=== PATIENT | male | born 1955 | race Caucasian/White ===

== ENCOUNTER 2019-04-13 18:06 | Inpatient (IN) | payer OTHER ==
[~2019-04-13] VITALS: Ht 170.2 cm; Wt 129.5 kg
[~2019-04-13 18:06] MED LIST: ASPI-831 PO; ATOR40TA68 PO; CEPH500C PO; CLON-379 PO; CLOP75TA28 PO; METO-429 PO
--- NOTE | 2019-04-13 18:17 | ERD ---
ER Documentation Chief Complaint Chief Complaint HPI This is a 63-year-old male with a past medical history of hypertension who was b rought into the emergency department by EMS from his home. EMS indicated they had been called to the patient earlier today as he was complaining of generalized weakness. The patient was refusing to go to the hospital at that time. EMS indicated that time the patient did not complain of any weakness of his upper or lower extremities. That was 5 hours prior to arrival. The patient recalled 911 as he stated over the past 5 hours he has developed weakness of his left upper extremity, right lower extremity and had difficulty speaking. He denied any numbness or tingling of his upper extremities or lower extremities. He denies a headache. The patient states that he does not take any anticoa gulants. He denies any recent seizure activity. He denies any hemoptysis hematemesis or melanotic stools. He has no chest pain or pressure. He states he is never had any similar symptoms in the past. ROS All systems reviewed and are negative except as per history of present illness. Allergies Allergies: Coded Allergies: No Known Allergy (Unverified , 04/13/19) Physical Exam Vitals Vital Signs Date Temp Pulse Resp B/P (MAP) Pulse Ox O2 O2 Flow FiO2 Time Delivery Rate 04/13/19 98.1 77 20 102/69 99 18:30 (80) Physical Exam Constitutional:Well-developed. Disheveled HEENT:Normocephalic. Atraumatic.Pupils were equal round reactive to light. Moist mucous membranes.No tonsillar exudates. Neck: No nuchal rigidity. No lymphadenopathy. No posterior cervical spine tende rness or step-offs. Respiratory: Not using accessory muscles of respiration.Lungs were clear to ausc ultation bilaterally. No rhonchi. No rales. No wheezing. Cardiovascular: Regular rate regular rhythm.No murmurs. No rubs were appreciated.S1, S2 normal. Distal pulses are palpable 2+ bilaterally. GI: Abdomen was soft. Nontender. Non Distended. No pulsatile abdominal masses or bruits. No rebound. No guarding. Bowel sounds were present and normal. Muscle skeletal: No muscle atrophy. No asymmetrical calf tenderness or swelling Skin: No petechia, no purpura. No lesions on the palms or the soles of the feet. No maculopapular rash. NEURO: Patient was alert, awake, orientated x3.No facial droop. Speech was slurred. Flaccid paralysis of the left upper extremity. Patient was able to lift the left lower extremity against gravity for roughly 2 seconds. Gait not observed. Sensation diminished on the left side of the face compared to the right with sharp and dull. Sensation also diminished on the left upper extremity to sharp and dull compared to the right. Result Diagram: 04/13/19181704/13/198 Results 24 hrs Laboratory Tests Test 04/13/19 18:18 04/13/19 18:34 White Blood Count 7.5 10^3/ul Red Blood Count 4.52 10^6/ul Hemoglobin 14.4 g/dl Hematocrit 43.2 % Mean Corpuscular Volume 95.6 fl Mean Corpuscular Hemoglobin 31.9 pg Mean Corpuscular Hemoglobin Concent 33.3 g/dl Red Cell Distribution Width 13.2 % Platelet Count 153 10^3/UL Mean Platelet Volume 10.0 fl Immature Granulocytes % 0.400 % Neutrophils % 70.3 % Lymphocytes % 18.6 % Monocytes % 7.9 % Eosinophils % 2.1 % Basophils % 0.7 % Nucleated Red Blood Cells % 0.0 /100WBC Immature Granulocytes # 0.030 10^3/ul Neutrophils # 5.2 10^3/ul Lymphocytes # 1.4 10^3/ul Monocytes # 0.6 10^3/ul Eosinophils # 0.2 10^3/ul Basophils # 0.1 10^3/ul Nucleated Red Blood Cells # 0.0 10^3/ul Prothrombin Time 13.0 Sec Prothrombin Time Ratio 1.0 INR International Normalized Ratio 0.97 Activated Partial Thromboplast Time 29.6 Sec Sodium Level 141 mmol/L Potassium Level 4.0 mmol/L Chloride Level 108 mmol/L Carbon Dioxide Level 23 mmol/L Anion Gap 10 Blood Urea Nitrogen 13 mg/dl Creatinine 1.27 mg/dl Est Glomerular Filtrat Rate mL/min 57 mL/min Glucose Level 101 mg/dl Hemoglobin A1c 5.3 % Calcium Level 9.4 mg/dl Total Bilirubin 0.6 mg/dl Direct Bilirubin 0.00 mg/dl Indirect Bilirubin 0.6 mg/dl Aspartate Amino Transf (AST/SGOT) 23 IU/L Alanine Aminotransferase (ALT/SGPT) 29 IU/L Alkaline Phosphatase 68 IU/L Creatine Kinase 85 IU/L Creatine Kinase Index 1.0 Creatinine Kinase MB (Mass) 0.85 ng/ml Troponin I < 0.012 ng/ml Total Protein 7.1 g/dl Albumin 4.4 g/dl Globulin 2.70 g/dl Albumin/Globulin Ratio 1.62 Triglycerides Level 119 mg/dl Cholesterol Level 138 mg/dl LDL Cholesterol, Calculated 82 mg/dl HDL Cholesterol 32 mg/dl Cholesterol/HDL Ratio 4.3 RATIO Ethyl Alcohol Level < 10.0 mg/dl Bedside Glucose 93 mg/dL Current Medications Medications Dose Sig/Gabrielle Start Time Status Last (Trade) Ordered Route PRN Stop Time Admin Dose Reason Admin Ondansetron 4 mg ER BRIDGE 04/13/19 HCl (Zofran PRN IV 20:30 04/14/19 Inj) NAUSEA/VOMITI 20:29 NG 650 mg ER BRIDGE 04/13/19 Acetaminophen PRN PO 20:30 04/14/19 (Tylenol .MILD PAIN 20:29 Tab) 1-3 OR TEMP Procedures/MDM This is a 63-year-old male who presented to the emergency department by EMS and code stroke was immediately called after my initial evaluation. The patient was not a TPA candidate given that his symptoms started 5 hours prior to arrival with the last known normal time. However the patient immediately was taken to the CT scan to undergo a CT of his head as well as CTA head and neck. I spoke with the interventional neurologist Dr. Frye at 6:15 PM. He was also in a grants from our conversation that the patient was not a TPA candidate. CT scan showed no intracerebral hemorrhage mass-effect dementia. The patient was given aspirin. He will be admitted to the hospitalist for observation for further evaluation. 12 Lead EKG tracing ordered and reviewed by myself showed: Normal sinus rhythm of 67 bpm and no arrhythmia. AR interval normal. QRS duration normal. No ST segment elevation No ST segment depression. No changes consistent with acute ischemia. Critical Care: Time: 55 minutes Treatments/Evaluations: Close monitoring and treatment of unstable vital signs, cardiorespiratory, and neurologic status, while maintaining tight balance of fluid, respiratory, and cardiac interventions. Time does not include performing any of the above billable procedures. Departure Diagnosis: Primary Impression: CVA (cerebral vascular accident) CVA mechanism: unspecified Qualified Codes: I63.9 - Cerebral infarction, unspecified Condition: Serious JUJU CERDA MD Apr 13, 2019 18:17
--- NOTE | 2019-04-13 18:52 | STROKE ---
Date/Time of Note Date/Time of Note DATE: 04/13/19 TIME: 18:51 Patient Information General Patient location: emergency Arrival Date Age 63 Gender male Weight 130.5 kg POC Glucose Glucose Result Bedside Glucose - 72 Hours Test 04/13/19 18:34 Bedside Glucose 93 mg/dL (70-220) Vital Signs Vital Signs Vital Signs Date Temp Pulse Resp B/P (MAP) Pulse Ox O2 O2 Flow FiO2 Time Delivery Rate 04/13/19 98.1 77 20 102/69 99 18:30 (80) Labs Coagulation Labs: Coagulation Test 04/13/19 18:18 Activated Partial Thromboplast Time 29.6 Sec (23.0-35.0) History & Physical History of Present Illness 63 M PMH HTN LKW 1200 PST with generalized weakness then later left hemiparesis and dysarthria NIH Stroke Scale NIH Stroke Scale [id number] Total Score: [id number] Date/Time Recorded DATE: 04/13/19 TIME: 18:30 Submitted By Omero May t-PA Imaging Review Date/Time Imaging Reviewed DATE: 04/13/19 TIME: 18:51 t-PA Administration Recommendation: No Weight 130.5 kg Recommedation submitted by Omero May Reason t-PA not Recommended Not in time window Recommendations Recommendation 63 M with left hemiparesis concerning for stroke. Not in tPA window. Examination consistent with likely small-vessel etiology of stroke but CTA Head/Neck to rule-out LVO is pending. - No [employer] imaging uploaded yet. Local team to contact Radiology on-call. If no LVO on CTA then local admission for stroke work-up is the plan - Admission for initial stroke studies: MRI Brain, TTE with bubble, blood cultures, telemetry, EKG, LDL, A1c, SP, PT, OT. Further testing per these initial results/evaluations. - Perform bedside swallow testing in ED and load with ASA 325 mg PO and Plavix 600 mg PO if passes and not already on these agents at home. Would continue ASA at 81 mg PO QD and Plavix at 75 mg PO QD starting tomorrow. Duration of dual- antiplatelet therapy per local Neurology team, but maximum benefit is seen in first 7 days per POINT trial in patients without intracranial atherosclerotic disease - q 1 hr neuro checks over next 24 hrs - Strict euvolemia, normonatremia, normothermia, normoglycemia - Permissive SBP to 185 for first 24 hours during stroke work-up - Please consult local Neurologist to guide further recs OMERO MAY MD Apr 13, 2019 18:52
[2019-04-13] MEDS ORDERED: ASPIRIN (EC) 81 MG TAB PO ONE (20:30)
[2019-04-13] MEDS ORDERED: ONDANSETRON 4 MG INJ IV PRN (20:30)
[2019-04-13] MEDS ORDERED: ACETAMINOPHEN 325 MG TAB PO PRN (20:30)
[2019-04-13 22:00] VITALS: BP 148/78; PULSE 69; RESP 20; Ht 170.2 cm; Wt 129.5 kg
[2019-04-13] MEDS ORDERED: SOD CHLORIDE 0.9% 100 ML ONE (22:56)
[2019-04-13] MEDS ORDERED: IOHEXOL 100 ML ONE (22:56)
[2019-04-14] MEDS ORDERED: ACETAMINOPHEN 325 MG TAB PO PRN (01:00)
[2019-04-14] MEDS ORDERED: ALBUTEROL/IPRATROPIUM (NEB) 3 ML AMP HHN PRN (01:00)
[2019-04-14] MEDS ORDERED: NACL 0.9% 3 ML SYG IV SCH (01:00)
[2019-04-14] MEDS ORDERED: ONDANSETRON 4 MG INJ IV PRN (01:00)
[2019-04-14 01:39] VITALS: BP 181/97; PULSE 63; RESP 20
[2019-04-14] MEDS ORDERED: PANTOPRAZOLE 40 MG INJ IV ONE (02:00)
[2019-04-14] MEDS ORDERED: CLOPIDOGREL 75 MG TAB PO ONE (03:30)
--- NOTE | 2019-04-14 03:39 | HP ---
Date/Time of Note Date/Time of Note DATE: 04/14/19 TIME: 03:29 Assessment/Plan VTE Prophylaxis Risk score (from Ns)>0 risk: 3 SCD applied (from Ns): Yes Pharmacological prophylaxis: heparin Lines/Catheters IV C[facility] Type [facility] Saline Lock Urinary Cath still in place: No Assessment/Plan Assessment/Plan 1. Acute CVA -Patient presented with left-sided weakness and slurred speech. Slurred speech is still present even though patient was sleepy of the time of my examination -Head CT and CT angiogram without acute findings -Out of window for TPA -He was given low-dose aspirin in the ER -will give the Plavix 600 mg per telemetry neurology recommendation, then will add Plavix 75 mg daily to low-dose aspirin -Add statin -Obtain MRI of the brain and a 2D echo -Neurology consult -PT and speech/swallow eval -Frequent neurochecks 2. History of CAD with stent -Aspirin and statin 3. Presumed PRASHANT: hydration for now 4. History of hypertension: BP with-in acceptable range 5. Obesity with a BMI of 45: Currently patient sleepy, but weight reduction will be advised when patient is more awake Result Diagram: 04/13/19 1818 04/13/19 1818 Results 24hrs Laboratory Tests Test 04/13/19 18:18 04/13/19 18:34 04/13/19 21:31 White Blood Count 7.5 Red Blood Count 4.52 L Hemoglobin 14.4 Hematocrit 43.2 Mean Corpuscular Volume 95.6 Mean Corpuscular Hemoglobin 31.9 Mean Corpuscular Hemoglobin Concent 33.3 Red Cell Distribution Width 13.2 Platelet Count 153 Mean Platelet Volume 10.0 Immature Granulocytes % 0.400 Neutrophils % 70.3 Lymphocytes % 18.6 Monocytes % 7.9 Eosinophils % 2.1 Basophils % 0.7 Nucleated Red Blood Cells % 0.0 Immature Granulocytes # 0.030 Neutrophils # 5.2 Lymphocytes # 1.4 Monocytes # 0.6 Eosinophils # 0.2 Basophils # 0.1 Nucleated Red Blood Cells # 0.0 Prothrombin Time 13.0 Prothrombin Time Ratio 1.0 INR International Normalized Ratio 0.97 Activated Partial Thromboplast Time 29.6 Sodium Level 141 Potassium Level 4.0 Chloride Level 108 Carbon Dioxide Level 23 Anion Gap 10 Blood Urea Nitrogen 13 Creatinine 1.27 H Est Glomerular Filtrat Rate mL/min 57 L Glucose Level 101 Hemoglobin A1c 5.3 Calcium Level 9.4 Total Bilirubin 0.6 Direct Bilirubin 0.00 Indirect Bilirubin 0.6 Aspartate Amino Transf (AST/SGOT) 23 Alanine Aminotransferase (ALT/SGPT) 29 Alkaline Phosphatase 68 Creatine Kinase 85 Creatine Kinase Index 1.0 Creatinine Kinase MB (Mass) 0.85 Troponin I < 0.012 Total Protein 7.1 Albumin 4.4 Globulin 2.70 Albumin/Globulin Ratio 1.62 Triglycerides Level 119 Cholesterol Level 138 LDL Cholesterol, Calculated 82 HDL Cholesterol 32 Cholesterol/HDL Ratio 4.3 Ethyl Alcohol Level < 10.0 H Bedside Glucose 93 Urine Color YELLOW Urine Clarity CLEAR Urine pH 6.0 Urine Specific [place] 1.008 Urine Ketones NEGATIVE Urine Nitrite NEGATIVE Urine Bilirubin NEGATIVE Urine Urobilinogen NEGATIVE Urine Leukocyte Esterase NEGATIVE Urine Hemoglobin NEGATIVE Urine Glucose NEGATIVE Urine Total Protein NEGATIVE Urine Opiates Screen Negative Urine Barbiturates Negative Urine Amphetamines Screen Negative Urine Benzodiazepines Screen Negative Urine Cocaine Screen Negative Urine Cannabinoids Positive HPI/ROS Admit Date/Time Admit Date/Time Apr 13, 2019 at 20:11 Hx of Present Illness Patient is a 63-year-old male with a history of hypertension and CAD with stent who presented to ER complaining of left-sided weakness and slurred speech. Patient is currently sleepy and requires constant stimulation to keep him awake. As such information from the patient is limited. He said the reason why he came to the hospital is because of stroke. On further questioning, patient made he has been having slurred speech and unable to walk on his left leg for a day. He also complains of left upper extremity weakness. Denied a history of previous stroke. Patient appears disheveled with poor dentition and onychomycosis. He said he lives alone in an apartment not far from this hospital. When he presents the ER, vitals were stable. Head CT without acute findings. He was evaluated by tele-neurologist and TPA was given. At the time of tele evaluation, results of CT and CT angiogram were still pending. PMH/Family/Social Past Medical History Medical History: other (See HPI) Medications Current Medications Ondansetron HCl (Zofran Inj) 4 mg ER BRIDGE PRN IV NAUSEA/VOMITING; Start 04/13/19 at 20:30; Stop 04/14/19 at 20:29 Acetaminophen (Tylenol Tab) 650 mg ER BRIDGE PRN PO .MILD PAIN 1-3 OR TEMP; Start 04/13/19 at 20:30; Stop 04/14/19 at 20:29 IV Flush (NS 3 ml) 3 ml PER PROTOCOL IV ; Start 04/14/19 at 01:00 Ondansetron HCl (Zofran Inj) 4 mg Q6H PRN IV NAUSEA/VOMITING; Start 04/14/19 at 01:00 Aspirin (Aspirin) 81 mg DAILY PO ; Start 04/14/19 at 09:00 Acetaminophen (Tylenol Tab) 650 mg Q6H PRN PO .PAIN 1-3 OR TEMP; Start 04/14/19 at 01:00 Heparin Sodium (Porcine) (Heparin (5000 Units/1ml)) 5,000 unit Q12 SC ; Start 04/14/19 at 09:00 Albuterol/ Ipratropium (Duoneb) 3 ml Q2H RESP THERAPY PRN HHN SHORTNESS OF BREATH; Start 04/14/19 at 01:00 Atorvastatin Calcium (Lipitor) 20 mg HS PO ; Start 04/14/19 at 21:00 Coded Allergies: No Known Allergy (Unverified , 04/13/19) Past Surgical History Past Surgical Hx: other (See HPI) Family History Significant Family History: no pertinent family hx Social History Alcohol Use: other (Unknown) Smoking Status: Unknown if ever smoked Drug Use: other (Unknown) Exam/Review of Systems Vital Signs Vitals Vital Signs Date Temp Pulse Resp B/P (MAP) Pulse Ox O2 O2 Flow FiO2 Time Delivery Rate 04/14/19 98.2 63 20 181/97 98 Room Air 01:39 (125) 04/14/19 3.0 00:00 Intake and Output 04/13/19 04/13/19 04/14/19 1515:00 23:00 07:00 OutputOutput Total 300 ml BalanceBalance -300 ml Exam Constitutional: other (Sleepy, but arousable) Head: normocephalic, atraumatic Eyes: PERRL ENMT: other (Poor dentition) Respiratory: clear to auscultation, normal air movement Cardiovascular: regular rate and rhythm, nl pulses Gastrointestinal: soft Extremities: normal pulses, other (Onychomycosis) Neurological: other (Slurred speech noted. Unable to fully assess neurological exam because patient is a sleepy and requires constant stimulation) KEV VAZQUEZ MD Apr 14, 2019 03:38
[2019-04-14 04:40] VITALS: BP 168/78; RESP 18
[2019-04-14 07:41] VITALS: BP 148/77; PULSE 61; RESP 18
[2019-04-14] MEDS: ASPIRIN 81 MG TAB PO SCH (09:14)
[2019-04-14] MEDS: HEPARIN 5,000 UNIT/1 ML VIAL SC SCH ×2 (09:38→20:32)
[2019-04-14] MEDS ORDERED: POTASSIUM CHLORIDE (SR) 20 MEQ TAB PO STA ×2 (10:56→13:48)
--- NOTE | 2019-04-14 11:03 | PN ---
Date/Time of Note Date/Time of Note DATE: 04/14/19 TIME: 11:03 Assessment/Plan VTE Prophylaxis Risk score (from Ns)>0 risk: 5 SCD applied (from Ns): Yes Pharmacological prophylaxis: heparin Lines/Catheters IV Catheter Type (from [facility]): Peripheral IV Urinary Cath still in place: No Assessment/Plan Hospital Course SUBJECTIVE: Patient continued to have speech difficulties. Able to move all 4 extremities all the left upper extremity slightly weaker but improved from prior. OBJECTIVE: Vital signs-see below PHYSICAL EXAM: Constitutional: Obese male,not in acute distress. HEENT: Head atraumatic and normocephalic. Eyes: Extraocular muscles intact. Anicteric sclerae. Pupils equal bilaterally, reactive to light. NECK: Supple without lymph node. CHEST: Clear and good breath sounds equally. No wheezing. No rhonchi. HEART: S1, S2. Regular rate and rhythm. ABDOMEN: Soft/non tender with no rebound tenderness. Bowel sounds were present. EXTREMITIES: No cyanosis, clubbing or edema. NEUROLOGIC: Alert and oriented, answers questions appropriately although drifts off. Slurred speech. Motor strength 4 out of 5 on LUE/LLE. 5/5 RLE,RUE.. No sensory deficit. PSYCHOSOCIAL: No signs of depression. INTEGUMENTARY: No open wounds. ASSESSMENT AND PLAN:63 yo M w/HTN/DLP admitted with sudden onset of left-sided weakness and slurred speech.. Rule out acute CVA, out of TPA window -CT noted. MRI pending -DAPT/high intensity statin -PT/ST/OT eval -Neurology consultation -TTE with bubble study. Coronary artery disease/PCI with stent (2017) -Continue DAPT/statin HTN -For now, will keep permissive hypertension for the first 24 hours. Dyslipidemia -On statin Morbid obesity with a BMI 44.7 -Lifestyle changes/weight reduction advised. DVT prophylaxis: Heparin PUD prophylaxis: Protonix Disposition: Follow-up neurology recommendation MRI findings. Blood culture growing gram-positive in pairs on both sets. At this time, will start vancomycin empirically and follow-up final cultures. Patient is seen in collaboration with Dr. Hopkins. Result Diagram: 04/14/19 0614 04/14/19 0614 Results 24hrs Laboratory Tests Test 04/13/19 18:18 04/13/19 18:34 04/13/19 21:31 04/14/19 06:14 White Blood Count 7.5 5.7 # Red Blood Count 4.52 L 4.22 L Hemoglobin 14.4 13.4 L Hematocrit 43.2 40.9 L Mean Corpuscular Volume 95.6 96.9 Mean Corpuscular 31.9 31.8 Hemoglobin Mean Corpuscular 33.3 32.8 Hemoglobin Concent Red Cell Distribution 13.2 13.2 Width Platelet Count 153 122 #L Mean Platelet Volume 10.0 10.4 Immature Granulocytes % 0.400 0.400 Neutrophils % 70.3 65.7 Lymphocytes % 18.6 23.0 Monocytes % 7.9 7.2 Eosinophils % 2.1 2.8 Basophils % 0.7 0.9 Nucleated Red Blood 0.0 0.0 Cells % Immature Granulocytes # 0.030 0.020 Neutrophils # 5.2 3.7 Lymphocytes # 1.4 1.3 Monocytes # 0.6 0.4 Eosinophils # 0.2 0.2 Basophils # 0.1 0.1 Nucleated Red Blood 0.0 0.0 Cells # Prothrombin Time 13.0 Prothrombin Time Ratio 1.0 INR International 0.97 Normalized Ratio Activated 29.6 Partial Thromboplast Time Sodium Level 141 143 Potassium Level 4.0 3.3 L Chloride Level 108 110 Carbon Dioxide Level 23 27 Anion Gap 10 6 Blood Urea Nitrogen 13 11 Creatinine 1.27 H 0.97 Est Glomerular Filtrat 57 L > 60 Rate mL/min Glucose Level 101 77 Hemoglobin A1c 5.3 5.4 Calcium Level 9.4 9.0 Total Bilirubin 0.6 0.6 Direct Bilirubin 0.00 0.00 Indirect Bilirubin 0.6 0.6 Aspartate Amino 23 39 # Transf (AST/SGOT) Alanine 29 27 Aminotransferase (ALT/SG PT) Alkaline Phosphatase 68 60 Creatine Kinase 85 71 Creatine Kinase Index 1.0 1.2 Creatinine Kinase MB 0.85 0.86 (Mass) Troponin I < 0.012 0.015 Total Protein 7.1 6.4 Albumin 4.4 3.8 Globulin 2.70 2.60 Albumin/Globulin Ratio 1.62 1.46 Triglycerides Level 119 130 Cholesterol Level 138 125 LDL Cholesterol, 82 72 Calculated HDL Cholesterol 32 27 L Cholesterol/HDL Ratio 4.3 4.6 Ethyl Alcohol Level < 10.0 H Bedside Glucose 93 Urine Color YELLOW Urine Clarity CLEAR Urine pH 6.0 Urine Specific [place] 1.008 Urine Ketones NEGATIVE Urine Nitrite NEGATIVE Urine Bilirubin NEGATIVE Urine Urobilinogen NEGATIVE Urine Leukocyte Esterase NEGATIVE Urine Hemoglobin NEGATIVE Urine Glucose NEGATIVE Urine Total Protein NEGATIVE Urine Opiates Screen Negative Urine Barbiturates Negative Urine Amphetamines Negative Screen Urine Benzodiazepines Negative Screen Urine Cocaine Screen Negative Urine Cannabinoids Positive Magnesium Level 2.0 Thyroid Stimulating 3.420 Hormone (TSH) Exam/Review of Systems Exam Vitals Vital Signs Date Temp Pulse Resp B/P (MAP) Pulse Ox O2 O2 Flow FiO2 Time Delivery Rate 04/14/19 98.0 61 18 148/77 97 Room Air 07:41 (100) 04/14/19 3.0 00:00 Intake and Output 04/13/19 04/13/19 04/14/19 1515:00 23:00 07:00 IntakeIntake Total 700 ml OutputOutput Total 1150 ml BalanceBalance -450 ml Results Results 24hrs Laboratory Tests Test 04/13/19 18:18 04/13/19 18:34 04/13/19 21:31 04/14/19 06:14 White Blood Count 7.5 5.7 # Red Blood Count 4.52 L 4.22 L Hemoglobin 14.4 13.4 L Hematocrit 43.2 40.9 L Mean Corpuscular Volume 95.6 96.9 Mean Corpuscular 31.9 31.8 Hemoglobin Mean Corpuscular 33.3 32.8 Hemoglobin Concent Red Cell Distribution 13.2 13.2 Width Platelet Count 153 122 #L Mean Platelet Volume 10.0 10.4 Immature Granulocytes % 0.400 0.400 Neutrophils % 70.3 65.7 Lymphocytes % 18.6 23.0 Monocytes % 7.9 7.2 Eosinophils % 2.1 2.8 Basophils % 0.7 0.9 Nucleated Red Blood 0.0 0.0 Cells % Immature Granulocytes # 0.030 0.020 Neutrophils # 5.2 3.7 Lymphocytes # 1.4 1.3 Monocytes # 0.6 0.4 Eosinophils # 0.2 0.2 Basophils # 0.1 0.1 Nucleated Red Blood 0.0 0.0 Cells # Prothrombin Time 13.0 Prothrombin Time Ratio 1.0 INR International 0.97 Normalized Ratio Activated 29.6 Partial Thromboplast Time Sodium Level 141 143 Potassium Level 4.0 3.3 L Chloride Level 108 110 Carbon Dioxide Level 23 27 Anion Gap 10 6 Blood Urea Nitrogen 13 11 Creatinine 1.27 H 0.97 Est Glomerular Filtrat 57 L > 60 Rate mL/min Glucose Level 101 77 Hemoglobin A1c 5.3 5.4 Calcium Level 9.4 9.0 Total Bilirubin 0.6 0.6 Direct Bilirubin 0.00 0.00 Indirect Bilirubin 0.6 0.6 Aspartate Amino 23 39 # Transf (AST/SGOT) Alanine 29 27 Aminotransferase (ALT/SG PT) Alkaline Phosphatase 68 60 Creatine Kinase 85 71 Creatine Kinase Index 1.0 1.2 Creatinine Kinase MB 0.85 0.86 (Mass) Troponin I < 0.012 0.015 Total Protein 7.1 6.4 Albumin 4.4 3.8 Globulin 2.70 2.60 Albumin/Globulin Ratio 1.62 1.46 Triglycerides Level 119 130 Cholesterol Level 138 125 LDL Cholesterol, 82 72 Calculated HDL Cholesterol 32 27 L Cholesterol/HDL Ratio 4.3 4.6 Ethyl Alcohol Level < 10.0 H Bedside Glucose 93 Urine Color YELLOW Urine Clarity CLEAR Urine pH 6.0 Urine Specific [place] 1.008 Urine Ketones NEGATIVE Urine Nitrite NEGATIVE Urine Bilirubin NEGATIVE Urine Urobilinogen NEGATIVE Urine Leukocyte Esterase NEGATIVE Urine Hemoglobin NEGATIVE Urine Glucose NEGATIVE Urine Total Protein NEGATIVE Urine Opiates Screen Negative Urine Barbiturates Negative Urine Amphetamines Negative Screen Urine Benzodiazepines Negative Screen Urine Cocaine Screen Negative Urine Cannabinoids Positive Magnesium Level 2.0 Thyroid Stimulating 3.420 Hormone (TSH) Medications Medication Current Medications Ondansetron HCl (Zofran Inj) 4 mg ER BRIDGE PRN IV NAUSEA/VOMITING; Start 04/13/19 at 20:30; Stop 04/14/19 at 20:29 Acetaminophen (Tylenol Tab) 650 mg ER BRIDGE PRN PO .MILD PAIN 1-3 OR TEMP; Start 04/13/19 at 20:30; Stop 04/14/19 at 20:29 IV Flush (NS 3 ml) 3 ml PER PROTOCOL IV ; Start 04/14/19 at 01:00 Ondansetron HCl (Zofran Inj) 4 mg Q6H PRN IV NAUSEA/VOMITING; Start 04/14/19 at 01:00 Aspirin (Aspirin) 81 mg DAILY PO Last administered on 04/14/19at 09:14; Admin Dose 81 MG; Start 04/14/19 at 09:00 Acetaminophen (Tylenol Tab) 650 mg Q6H PRN PO .PAIN 1-3 OR TEMP; Start 04/14/19 at 01:00 Heparin Sodium (Porcine) (Heparin (5000 Units/1ml)) 5,000 unit Q12 SC Last administered on 04/14/19at 09:38; Admin Dose 5,000 UNIT; Start 04/14/19 at 09:00 Albuterol/ Ipratropium (Duoneb) 3 ml Q2H RESP THERAPY PRN HHN SHORTNESS OF BREATH; Start 04/14/19 at 01:00 Atorvastatin Calcium (Lipitor) 20 mg HS PO ; Start 04/14/19 at 21:00 Clopidogrel Bisulfate (plaVIX) 75 mg DAILY PO ; Start 04/15/19 at 09:00 SHANIA ELY NP Apr 14, 2019 11:03
[2019-04-14] MEDS ORDERED: PANTOPRAZOLE (EC) 40 MG TAB PO ONE (11:30)
[2019-04-14] MEDS ORDERED: LORAZEPAM 2 MG INJ IV PRN ×2 (12:00→19:30)
[2019-04-14 12:08] VITALS: BP 155/78; PULSE 88; RESP 16
[2019-04-14] MEDS ORDERED: VANCOMYCIN IV PER PHARMACY XX SCH (14:00)
[2019-04-14] MEDS ORDERED: hydrALAzine 20 MG INJ IV PRN (14:00)
[2019-04-14] MEDS ORDERED: VANCOMYCIN HCL 2 GM in SOD CHLORIDE 0.9% 500 ML IVPB SCH (14:30)
--- NOTE | 2019-04-14 15:17 | CONSI ---
Assessment/Plan Assessment/Plan Assessment/Plan (Recall) 63 M c/ multiple cerebrovascular risk factors, who presents for evaluation of left sided weakness x 1 day. The clinical picture is most ominously concerning for acute stroke.. BCx + and PRASHANT on presentation, which could suggest recrudescence as an alternative etiology.. Head CT is unremarkable CTA head and neck confirm atherosclerotic disease. A1C wnl; LDL 72 P: Await MRI brain for further characterization Agree w/ asa/lipitor daily for now, pending the above Await Echo Add ESR, RPR PT/OT/ST as necessary Other management and supportive care per primary Will follow clinically Consultation Date/Type/Reason Admit Date/Time Apr 13, 2019 at 20:11 Type of Consult Neurology Reason for Consultation left sided weakness Requesting Provider: SHANIA ELY NP Date/Time of Note DATE: 04/14/19 TIME: 15:09 Hx of Present Illness Patient is a 63-year-old male with a history of hypertension and CAD with stent who presented to ER complaining of left-sided weakness and slurred speech. Patient is currently sleepy and requires constant stimulation to keep him awake. As such information from the patient is limited. He said the reason why he came to the hospital is because of stroke. On further questioning, patient made he has been having slurred speech and unable to walk on his left leg for a day. He also complains of left upper extremity weakness. Denied a history of previous stroke. Patient appears disheveled with poor dentition and onychomyco sis. He said he lives alone in an apartment not far from this hospital. When he presents the ER, vitals were stable. Head CT without acute findings. He was evaluated by tele-neurologist and TPA was given. At the time of tele evaluation, results of CT and CT angiogram were still pending. per HPI Objective Exam Vitals Vital Signs Date Temp Pulse Resp B/P (MAP) Pulse Ox O2 O2 Flow FiO2 Time Delivery Rate 04/14/19 98.0 88 16 155/78 98 Room Air 12:08 (103) 04/14/19 3.0 00:00 Intake and Output 04/13/19 04/13/19 04/14/19 1515:00 23:00 07:00 IntakeIntake Total 700 ml OutputOutput Total 1150 ml BalanceBalance -450 ml Exam PE: Gen Appearance: No Apparent Distress HEENT: Normocephalic Cardiovascular: Regular rate Lungs: Clear bilaterally Abdomen: Soft Extremities: Dry NE: The patient was alert and oriented. Language was normal. Fund of knowledge was normal. Pupils were equal and reactive to light. There was no afferent pupillary defect. Visual zaidi were normal. Funduscopic examination was limited. Extra-ocular movements were full. Ptosis was absent. There was no nystagmus. Facial sensation was normal. Face was symmetric with normal strength. Hearing was intact. Palate movements were normal. Neck strength was normal. There was normal tongue bulk and speed of movement. Tone was normal. Muscle bulk was normal. I did not see fasciculations. Arms and legs were symmetric. Vibration sensation was reduced distally. Temperature and pinprick sensation was normal. Rapid alternating movements were normal. There was no dysmetria. There was no intention tremor. Gait was deferred due to bedrest. Arm and leg reflexes were symmetric. Beltre's sign was absent. Plantar responses were flexor. Results Result Diagram: 04/14/19 0614 04/14/19 0614 Results 24hrs Laboratory Tests Test 04/13/19 18:18 04/13/19 18:34 04/13/19 21:31 04/14/19 06:14 White Blood Count 7.5 5.7 # Red Blood Count 4.52 L 4.22 L Hemoglobin 14.4 13.4 L Hematocrit 43.2 40.9 L Mean Corpuscular Volume 95.6 96.9 Mean Corpuscular 31.9 31.8 Hemoglobin Mean Corpuscular 33.3 32.8 Hemoglobin Concent Red Cell Distribution 13.2 13.2 Width Platelet Count 153 122 #L Mean Platelet Volume 10.0 10.4 Immature Granulocytes % 0.400 0.400 Neutrophils % 70.3 65.7 Lymphocytes % 18.6 23.0 Monocytes % 7.9 7.2 Eosinophils % 2.1 2.8 Basophils % 0.7 0.9 Nucleated Red Blood 0.0 0.0 Cells % Immature Granulocytes # 0.030 0.020 Neutrophils # 5.2 3.7 Lymphocytes # 1.4 1.3 Monocytes # 0.6 0.4 Eosinophils # 0.2 0.2 Basophils # 0.1 0.1 Nucleated Red Blood 0.0 0.0 Cells # Prothrombin Time 13.0 Prothrombin Time Ratio 1.0 INR International 0.97 Normalized Ratio Activated 29.6 Partial Thromboplast Time Sodium Level 141 143 Potassium Level 4.0 3.3 L Chloride Level 108 110 Carbon Dioxide Level 23 27 Anion Gap 10 6 Blood Urea Nitrogen 13 11 Creatinine 1.27 H 0.97 Est Glomerular Filtrat 57 L > 60 Rate mL/min Glucose Level 101 77 Hemoglobin A1c 5.3 5.4 Calcium Level 9.4 9.0 Total Bilirubin 0.6 0.6 Direct Bilirubin 0.00 0.00 Indirect Bilirubin 0.6 0.6 Aspartate Amino 23 39 # Transf (AST/SGOT) Alanine 29 27 Aminotransferase (ALT/SG PT) Alkaline Phosphatase 68 60 Creatine Kinase 85 71 Creatine Kinase Index 1.0 1.2 Creatinine Kinase MB 0.85 0.86 (Mass) Troponin I < 0.012 0.015 Total Protein 7.1 6.4 Albumin 4.4 3.8 Globulin 2.70 2.60 Albumin/Globulin Ratio 1.62 1.46 Triglycerides Level 119 130 Cholesterol Level 138 125 LDL Cholesterol, 82 72 Calculated HDL Cholesterol 32 27 L Cholesterol/HDL Ratio 4.3 4.6 Ethyl Alcohol Level < 10.0 H Bedside Glucose 93 Urine Color YELLOW Urine Clarity CLEAR Urine pH 6.0 Urine Specific [facility] 1.008 Urine Ketones NEGATIVE Urine Nitrite NEGATIVE Urine Bilirubin NEGATIVE Urine Urobilinogen NEGATIVE Urine Leukocyte Esterase NEGATIVE Urine Hemoglobin NEGATIVE Urine Glucose NEGATIVE Urine Total Protein NEGATIVE Urine Opiates Screen Negative Urine Barbiturates Negative Urine Amphetamines Negative Screen Urine Benzodiazepines Negative Screen Urine Cocaine Screen Negative Urine Cannabinoids Positive Magnesium Level 2.0 Thyroid Stimulating 3.420 Hormone (TSH) Past Medical History Medical History: other Medications Current Medications IV Flush (NS 3 ml) 3 ml PER PROTOCOL IV ; Start 04/14/19 at 01:00 Ondansetron HCl (Zofran Inj) 4 mg Q6H PRN IV NAUSEA/VOMITING; Start 04/14/19 at 01:00 Aspirin (Aspirin) 81 mg DAILY PO Last administered on 04/14/19at 09:14; Admin Dose 81 MG; Start 04/14/19 at 09:00 Acetaminophen (Tylenol Tab) 650 mg Q6H PRN PO .PAIN 1-3 OR TEMP; Start 04/14/19 at 01:00 Heparin Sodium (Porcine) (Heparin (5000 Units/1ml)) 5,000 unit Q12 SC Last administered on 04/14/19at 09:38; Admin Dose 5,000 UNIT; Start 04/14/19 at 09:00 Albuterol/ Ipratropium (Duoneb) 3 ml Q2H RESP THERAPY PRN HHN SHORTNESS OF BREATH; Start 04/14/19 at 01:00 Clopidogrel Bisulfate (plaVIX) 75 mg DAILY PO ; Start 04/15/19 at 09:00 Atorvastatin Calcium (Lipitor) 80 mg HS PO ; Start 04/14/19 at 21:00 Pantoprazole (Protonix Tab) 40 mg DAILY@06 PO ; Start 04/15/19 at 06:00 Lorazepam (Ativan) 2 mg ONCE PRN IV Anxiety; Start 04/14/19 at 12:00; Stop 04/14/19 at 19:00 Vancomycin HCl (Vanco Iv Per Pharmacy) VANCOMYCIN PER PHARMACY PER PROTOCOL XX ; Start 04/14/19 at 14:00 Hydralazine HCl (Apresoline) 10 mg Q6H PRN IV SBP>220; Start 04/14/19 at 14:00 Vancomycin HCl 2 gm/Sodium Chloride 500 ml @ 125 mls/hr NOW IVPB ; Start 04/14/19 at 14:30; Stop 04/14/19 at 20:00 Vancomycin/Sodium Chloride 250 ml @ 83.333 mls/ hr Q12H IVPB ; Start 04/14/19 at 22:00 Allergies: Coded Allergies: No Known Allergy (Unverified , 04/13/19) Past Surgical History Past Surgical Hx: other Social History Alcohol Use: other Smoking Status: Unknown if ever smoked Drug Use: SOFIA Ernst Apr 14, 2019 15:17
[2019-04-14 15:35] VITALS: BP 158/79; PULSE 64; RESP 16
--- NOTE | 2019-04-14 15:43 | RADRPT ---
Echocardiogram Report Patient Name: BRITTANY HANNAPatient ID: [id number] : 1955 (63y 7m)Study Date: 04/14/2019 8:45:15 AM Gender: MAccession #: [id number] Tech: [facility] Location: [address] Ref.Physician: KEV VAZQUEZ Height(Cm): BSA: Weight(Kg): Quality: AdequateOrder Physician: KEV VAZQUEZ Account #: Procedures: Echocardiographic Report: Transthoracic echocardiogram with complete 2D, M-Mode, and doppler examination. Indications: Cerebrovascular Accident. Measurements: 2D/M Mode Doppler Measurement Value Normal Range Measurement Value Normal Range LVIDd 2D 5.1 [ 4.2 - 5.8 ] cm MIGNON VTI 1.4 [ 2.0 - 4.0 ] cm2 LVIDs 2D 3.2 [ 2.5 - 4.0 ] cm AV Mean Arpit 1.6 [ 70.0 - 90.0 ] cm/sec LVPWd 2D 1.2 [ 0.6 - 1.0 ] cm AV Mean PG 13.0 [ 2.0 - 4.0 ] mmHg IVSd 2D 1.8 [ 0.6 - 1.0 ] cm AV VTI 50.6 cm AoR Diam 2D 2.9 [ 2.6 - 3.4 ] cm LVOT Mean Arpit 0.7 [ 60.0 - 80.0 ] cm/sec EDV 2D 125.0 [ 62.0 - 150.0 ] ml LVOT Mean PG 2.0 [ 1.0 - 3.0 ] mmHg ESV 2D 40.3 [ 21.0 - 61.0 ] ml LVOT Peak Arpit 1.1 [ 70.0 - 110.0 ] cm/sec EF 2D 67.8 [ 52.0 - 72.0 ] percent LVOT Peak PG 5.0 [ 2.0 - 6.0 ] mmHg LA Dimen 2D 4.0 [ 3.0 - 4.0 ] cm LVOT VTI 22.0 [ 20.0 - 30.0 ] cm LVOT Diam 2.0 [ 2.3 - 2.9 ] cm MV E Peak Arpit 0.7 [ 60.0 - 130.0 ] cm/sec MV A Peak Arpit 1.0 [ 100.0 - 120.0 ] cm/sec MV E/A 0.7 [ 0.8 - 1.5 ] ratio MV Decel Time 299 [ 104 - 258 ] msec Lat E` Arpit 0.1 [ 10.0 - 15.0 ] cm/sec Lateral E/E` 9.6 [ 1.0 - 2.0 ] ratio Med E` Arpit 0.1 cm/sec MV E/A 0.7 [ 0.8 - 1.5 ] ratio TR Peak Arpit 2.4 [ 100.0 - 280.0 ] cm/sec TR Peak PG 23.0 mmHg RVSP 26.0 [ 10.0 - 36.0 ] mmHg Findings: Left Ventricle: Normal left ventricular systolic function. Normal left ventricular cavity size. Severe asymmetric septal hypertrophy. Ejection fraction is visually estimated at 60 %. Tissue Doppler/Mitral Doppler indices are consistent with impaired relaxation (Stage I diastolic dysfunction). Right Ventricle: Normal right ventricular size. Normal right ventricular systolic function. Left Atrium: The left atrium is normal in size. Right Atrium: The right atrium is normal in size. Atrial Septum: Bubble study was performed with and with out valsalva indicating no evidence of intra atrial shunt. Mitral Valve: Mild mitral leaflet calcification. Mild mitral annular calcification. Trace mitral regurgitation. Aortic Valve: Aortic sclerosis. No aortic regurgitation. Tricuspid Valve: Normal appearance of the tricuspid valve. The estimated Peak RVSP is 26 mmHg. There is trace tricuspid regurgitation. Pericardium: Normal pericardium with no significant pericardial effusion. Aorta: Normal aortic root. IVC: Normal size and normal respiratory collapse consistent with normal right atrial pressure. Conclusions: Normal left ventricular systolic function. Normal left ventricular cavity size. Severe asymmetric septal hypertrophy. Ejection fraction is visually estimated at 60 %. Tissue Doppler/Mitral Doppler indices are consistent with impaired relaxation (Stage I diastolic dysfunction). Normal right ventricular size. Normal right ventricular systolic function. Bubble study was performed with and with out valsalva indicating no evidence of intra atrial shunt. No significant valvular stenosis or regurgitation seen. Normal pericardium with no significant pericardial effusion. Electronically Signed By: Hieu Leyva 2019-04-14 15:42:26 PDT
[2019-04-14 20:14] VITALS: BP 189/80; PULSE 66; RESP 22
[2019-04-14] MEDS: ATORVASTATIN 80 MG TAB PO SCH (20:29)
[2019-04-14] MEDS ORDERED: ATORVASTATIN 20 MG TAB PO SCH (21:00)
[2019-04-14] MEDS: VANCOMYCIN 1.5 GM/NS 250 ML 250 ML IVPB SCH (22:22)
[2019-04-15] VITALS (7 sets, daily range): BP systolic 157–180; BP diastolic 74–97; PULSE 64–79; RESP 18–22
[2019-04-15] MEDS: PANTOPRAZOLE (EC) 40 MG TAB PO SCH (05:50)
[2019-04-15] MEDS: CLOPIDOGREL 75 MG TAB PO SCH (08:44)
[2019-04-15] MEDS: ASPIRIN 81 MG TAB PO SCH (08:45)
[2019-04-15] MEDS: VANCOMYCIN 1.5 GM/NS 250 ML 250 ML IVPB SCH (09:00)
[2019-04-15] MEDS: HEPARIN 5,000 UNIT/1 ML VIAL SC SCH ×2 (09:04→21:47)
[2019-04-15] MEDS ORDERED: AMLODIPINE 5 MG TAB PO SCH (10:30)
--- NOTE | 2019-04-15 10:37 | PN ---
Date/Time of Note Date/Time of Note DATE: 04/15/19 TIME: 10:31 Assessment/Plan VTE Prophylaxis Risk score (from Ns)>0 risk: 5 SCD applied (from Ns): Yes Pharmacological prophylaxis: heparin Lines/Catheters IV [facility]ter [facility] (from [facility]): Peripheral IV Urinary Cath still in place: No Assessment/Plan Hospital Course SUBJECTIVE: Patient with clear speech. He is moving all 4 extremities. No focal deficit. OBJECTIVE: Vital signs-see below PHYSICAL EXAM: Constitutional: Obese male,not in acute distress. HEENT: Head atraumatic and normocephalic. Eyes: Extraocular muscles intact. An icteric sclerae. Pupils equal bilaterally, reactive to light. NECK: Supple without lymph node. CHEST: Clear and good breath sounds equally. No wheezing. No rhonchi. HEART: S1, S2. Regular rate and rhythm. ABDOMEN: Soft/non tender with no rebound tenderness. Bowel sounds were present. EXTREMITIES: No cyanosis, clubbing or edema. NEUROLOGIC: Alert and oriented, answers questions appropriately although drifts off. Slurred speech. Motor strength 4 out of 5 on LUE/LLE. 5/5 RLE,RUE.. No sensory deficit. PSYCHOSOCIAL: No signs of depression. INTEGUMENTARY: No open wounds. ASSESSMENT AND PLAN:63 yo M w/HTN/DLP admitted with sudden onset of left-sided weakness and slurred speech.. Transient left-sided weakness/slurred speech. ?HTN-related.. -MRI negative for acute stroke. TTE unremarkable. Symptoms almost resolved -Continue antiplatelet/statin therapy and follow-up neurology recommendations -PT/rehab Coronary artery disease/PCI with stent -Continue aspirin/statin HTN -We will resume beta-blockers. Dyslipidemia -On statin Morbid obesity with a BMI 44.7 -Lifestyle changes/weight reduction advised. CoagNS, likely contamination -no fevers/leukocytosis.. -DC vanco DVT prophylaxis: Heparin PUD prophylaxis: Protonix Disposition: Overall, patient with resolving symptoms. He is cleared for diet. Follow-up neurology recommendations on disposition. Patient is seen in collaboration with Dr. Lai Result Diagram: 04/15/19 0616 04/15/19 0616 Results 24hrs Laboratory Tests Test 04/14/19 15:57 04/15/19 06:16 Erythrocyte Sedimentation Rate 14 White Blood Count 5.0 Red Blood Count 4.22 L Hemoglobin 13.4 L Hematocrit 40.8 L Mean Corpuscular Volume 96.7 Mean Corpuscular Hemoglobin 31.8 Mean Corpuscular Hemoglobin Concent 32.8 Red Cell Distribution Width 13.2 Platelet Count 113 L Mean Platelet Volume 10.2 Immature Granulocytes % 0.200 Neutrophils % 62.3 Lymphocytes % 23.7 Monocytes % 10.4 Eosinophils % 2.6 Basophils % 0.8 Nucleated Red Blood Cells % 0.0 Immature Granulocytes # 0.010 Neutrophils # 3.1 Lymphocytes # 1.2 Monocytes # 0.5 Eosinophils # 0.1 Basophils # 0.0 Nucleated Red Blood Cells # 0.0 Sodium Level 142 Potassium Level 3.4 L Chloride Level 111 H Carbon Dioxide Level 26 Anion Gap 5 Blood Urea Nitrogen 8 Creatinine 0.78 Est Glomerular Filtrat Rate mL/min > 60 Glucose Level 93 Calcium Level 8.9 Phosphorus Level 3.6 Magnesium Level 2.0 Exam/Review of Systems Exam Vitals Vital Signs Date Temp Pulse Resp B/P (MAP) Pulse Ox O2 O2 Flow FiO2 Time Delivery Rate 04/15/19 98.2 65 22 172/97 99 Room Air 07:17 (122) 04/14/19 3.0 00:00 Intake and Output 04/14/19 04/14/19 04/15/19 1515:00 23:00 07:00 IntakeIntake Total 300 ml 1520 ml 400 ml OutputOutput Total 420 ml 400 ml 250 ml BalanceBalance -120 ml 1120 ml 150 ml Results Results 24hrs Laboratory Tests Test 04/14/19 15:57 04/15/19 06:16 Erythrocyte Sedimentation Rate 14 White Blood Count 5.0 Red Blood Count 4.22 L Hemoglobin 13.4 L Hematocrit 40.8 L Mean Corpuscular Volume 96.7 Mean Corpuscular Hemoglobin 31.8 Mean Corpuscular Hemoglobin Concent 32.8 Red Cell Distribution Width 13.2 Platelet Count 113 L Mean Platelet Volume 10.2 Immature Granulocytes % 0.200 Neutrophils % 62.3 Lymphocytes % 23.7 Monocytes % 10.4 Eosinophils % 2.6 Basophils % 0.8 Nucleated Red Blood Cells % 0.0 Immature Granulocytes # 0.010 Neutrophils # 3.1 Lymphocytes # 1.2 Monocytes # 0.5 Eosinophils # 0.1 Basophils # 0.0 Nucleated Red Blood Cells # 0.0 Sodium Level 142 Potassium Level 3.4 L Chloride Level 111 H Carbon Dioxide Level 26 Anion Gap 5 Blood Urea Nitrogen 8 Creatinine 0.78 Est Glomerular Filtrat Rate mL/min > 60 Glucose Level 93 Calcium Level 8.9 Phosphorus Level 3.6 Magnesium Level 2.0 Medications Medication Current Medications IV Flush (NS 3 ml) 3 ml PER PROTOCOL IV ; Start 04/14/19 at 01:00 Ondansetron HCl (Zofran Inj) 4 mg Q6H PRN IV NAUSEA/VOMITING; Start 04/14/19 at 01:00 Aspirin (Aspirin) 81 mg DAILY PO Last administered on 04/15/19at 08:45; Admin Dose 81 MG; Start 04/14/19 at 09:00 Acetaminophen (Tylenol Tab) 650 mg Q6H PRN PO .PAIN 1-3 OR TEMP; Start 04/14/19 at 01:00 Heparin Sodium (Porcine) (Heparin (5000 Units/1ml)) 5,000 unit Q12 SC Last administered on 04/15/19at 09:04; Admin Dose 5,000 UNIT; Start 04/14/19 at 09:00 Albuterol/ Ipratropium (Duoneb) 3 ml Q2H RESP THERAPY PRN HHN SHORTNESS OF BREATH; Start 04/14/19 at 01:00 Clopidogrel Bisulfate (plaVIX) 75 mg DAILY PO Last administered on 04/15/19at 08:44; Admin Dose 75 MG; Start 04/15/19 at 09:00 Atorvastatin Calcium (Lipitor) 80 mg HS PO Last administered on 04/14/19at 20:29; Admin Dose 80 MG; Start 04/14/19 at 21:00 Pantoprazole (Protonix Tab) 40 mg DAILY@06 PO Last administered on 04/15/19at 05:50; Admin Dose 40 MG; Start 04/15/19 at 06:00 Vancomycin HCl (Vanco Iv Per Pharmacy) VANCOMYCIN PER PHARMACY PER PROTOCOL XX ; Start 04/14/19 at 14:00 Vancomycin/Sodium Chloride 250 ml @ 83.333 mls/ hr Q12H IVPB Last administered on 04/15/19at 09:00; Admin Dose 83.333 MLS/HR; Start 04/14/19 at 22:00 Amlodipine Besylate (Norvasc) 5 mg DAILY PO ; Start 04/15/19 at 10:30; Status SHANIA JENKINS V. CHANGE HOUSE ATTENDANT Apr 15, 2019 10:37
[2019-04-15] MEDS: METOPROLOL 50 MG TAB PO SCH (11:05)
[2019-04-15] MEDS: ATORVASTATIN 80 MG TAB PO SCH (21:42)
[2019-04-16 03:26] VITALS: BP 158/75; PULSE 65; RESP 19
[2019-04-16] MEDS: PANTOPRAZOLE (EC) 40 MG TAB PO SCH (06:06)
[2019-04-16 07:33] VITALS: BP 131/81; PULSE 95; RESP 20
[2019-04-16] MEDS: CLOPIDOGREL 75 MG TAB PO SCH (08:47)
[2019-04-16] MEDS: ASPIRIN 81 MG TAB PO SCH (08:47)
[2019-04-16] MEDS: METOPROLOL 50 MG TAB PO SCH (08:48)
--- NOTE | 2019-04-16 08:59 | PDOCDIS ---
Discharge Instructions CONDITION [id number] Patient Condition: [id number] Stable HOME CARE INSTRUCTIONS: [id number] Diet Instructions: [id number] Reduced Calorie FOLLOW UP/APPOINTMENTS Follow-up Plan 1.YOU HAVE RECEIVED A MEDICAL TREATMENT AT [facility] AND YOUR CONDITION IS STABLE AND CAN BE FOLLOWED UP OUTPATIENT. FURTHER FOLLOW-UPS CAN WAIT UNTIL YOU ARE SEEN IN YOUR DOCTORS OFFICE WITHIN THE NEXT 1-2 DAYS. IT IS YOUR RESPONSIBILITY TO MAKE AN APPOINTMENT FOR FOLOW-UP CARE. IF YOU HAVE A PRIMARY DOCTOR --you should call your primary doctor in 1-2 days and schedule an appointment IF YOU DO NOT HAVE A PRIMARY DOCTOR YOU CAN CALL OUR PHYSICIAN REFERRAL HOTLINE AT 2. Call 201 or go to the nearest emergency room if experiencing loss of consciousness, dizziness, chest pain, shortness of breath, vomiting/abdominal pain, speech difficulties, motor weakness or any unusual symptoms. Follow-up with the [place] physicians tomorrow which you are going to do as per our discussion. You are given prescription and if your pharmacy require prescription from [place] physicians, you can check with them tomorrow. You have requested a Plavix refill until you see [facility]. You have mentioned that you had a stent placed within the last year and is less than 1 year old. Please speak with [place] physician regarding need for continue both aspirin and Plavix as usually Plavix is needed only for 1 year after the stent placed and after that you just need to continue aspirin. Please see brochures given for transient ischemic attack. SHANIA ELY NP Apr 16, 2019 08:59
[2019-04-16] MEDS ORDERED: CEPHALEXIN 500 MG CAP PO SCH (09:00)
--- NOTE | 2019-04-16 09:12 | DS ---
Date/Time of Note Date/Time of Note DATE: 04/16/19 TIME: 09:08 Discharge Summary Admission/Discharge Info Admit Date/Time Apr 14, 2019 at 11:02 Discharge Date/Time Discharge Diagnosis Transient left-sided weakness/slurred speech. Most likely TIA versus HTN relat ed-resolved. Coronary artery disease/PCI with stent (2017) HTN Dyslipidemia Morbid obesity with a BMI 44.7 Strep UTI -CoagNS bacteremia,likely contamination Patient Condition: Stable Consults Procedures 04/14/2019: MRI brain without contrast IMPRESSION: No acute intracranial findings. No evidence of acute infarct. Old small right thalamic lacunar infarcts, measuring up to 4 mm. Chronic small vessel ischemic disease. 04/14/2019: Head/neck CTA: IMPRESSION: 1. Negative for evidence of hemodynamically significant stenosis or occlusion of the major cervical and intracranial arteries. 2. Atherosclerosis of the intracranial and extracranial arteries with mild stenosis as described. Extracranial carotid arteries are tortuous that may be seen with hypertension. 3. Negative for CT evidence of acute large territory vascular infarct. If there is concern for recent ischemia, consider brain MRI for further evaluation. A call is in place to the patient's nurse by Monica on April 13, 2019 at 11:55 p.m. PST. Measurements of cervical internal carotid artery stenosis were performed according to NASCET criteria. Direct measurements of vessel diameters was made in reference to measurements of the distal internal carotid artery diameter. 04/14/2019: TTE with bubble study Conclusions: Normal left ventricular systolic function. Normal left ventricular cavity size. Severe asymmetric septal hypertrophy. Ejection fraction is visually estimated at 60 %. Tissue Doppler/Mitral Doppler indices are consistent with impaired relaxation (Stage I diastolic dysfunction). Normal right ventricular size. Normal right ventricular systolic function. Bubble study was performed with and with out valsalva indicating no evidence of intra atrial shunt. No significant valvular stenosis or regurgitation seen. Normal pericardium with no significant pericardial effusion. Electronically Signed By: Hieu Leyva 2019-04-14 15:42:26 PDT Hospital Course 63 yo M w/HTN/DLP admitted with sudden onset of left-sided weakness and slurred speech.. Head CT negative. Patient was seen by telemetry neurologist in the emergency room, and was deemed not a candidate for TPA infusion secondary to out of window. Patient was ruled out for stroke with extensive neurological work-up. Patient also had neurologist follow-up. Patient MRI was noted for old prior stroke. CTA head/neck negative for any LVO. TTE with bubble study negative for any shunting. Patient was noted with hypertension not optimally controlled. Patient symptoms resolved. His speech got cleared and he was able to walk without any assistance without any focal deficit within 24 hours of admission. Most likely, patient symptoms are TIA versus possible hypertension related symptoms. Blood pressure was managed with home regimen. Patient also mentioned that he had PCI with stent placed in 2018 and is about 1-year-old. He also noted with UTI. Blood cultures were suggestive of contamination. There was no fevers or leukocytosis. There was no evidence of any open wounds. He was recommended to take Keflex course for UTI. Patient did not have any further symptoms. He requested discharge before neurologist see him today. Patient has normal labs and vital signs. He is hemodynamically stable. He is walking in the units. Patient also has appointment with [facility]. He was given prescription and instructed to follow-up with the [facility] physician in the event that pharmacy does not cover medications prescribed by [place] outside network providers. 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 Patient verbalized his understanding. Approximately 60-minute was spent on coordinating the discharge on this patient. Patient was seen in collaboration with [facility] Active Scripts Clonidine Hcl* (Clonidine Hcl*) 0.1 Mg Tab, 0.1 MG PO TID for SBP>170, #20 TAB Prov:SHANIA ELY V. PEDIATRIC ALLERGIST 04/16/19 Aspirin (Aspirin) 81 Mg Chew, 81 MG PO DAILY, #30 TAB Prov:ELYLENO CANDELARIAA VAdriano PEDIATRIC ALLERGIST 04/16/19 Clopidogrel Bisulfate (Clopidogrel) 75 Mg Tablet, 75 MG PO DAILY, #30 TAB Prov:ELYSHANIA CANDELARIA VAdriano PEDIATRIC ALLERGIST 04/16/19 Cephalexin* (Cephalexin*) 500 Mg Capsule, 500 MG PO Q8 for 7 Days, #21 CAP Prov:SHANIA ELY V. PEDIATRIC ALLERGIST 04/16/19 Reported Medications Atorvastatin* (Atorvastatin*) 40 Mg Tablet, 40 MG PO QHS, #30 TAB 04/15/19 Metoprolol Tartrate* (Lopressor*) 50 Mg Tab, 50 MG PO DAILY, #60 TAB 04/15/19 Follow-up Plan Follow-up with the [place] physicians tomorrow which you are going to do as per our discussion. You are given prescription and if your pharmacy require prescription from [place] physicians, you can check with them tomorrow. You have requested a Plavix refill until you see your [facility]. You have mentioned that you had a stent placed within the last year and is less than 1 year old. Please speak with [facility] physician regarding need for continue both aspirin and Plavix as usually Plavix is needed only for 1 year after the stent placed and after that you just need to continue aspirin. Primary Care Provider Care Physician No Primary SHANIA ELY NP Apr 16, 2019 09:12
== END 2019-04-16 09:32 | disposition home or self-care (01) | DRG 69 ==
LOC: E/R 18:06 → TEL 20:11 → OBSVTOIN 04-14 11:02
PROVIDERS: ADMIT Internal Medicine; ATTEND Internal Medicine
DX: G45.9 Transient cerebral ischemic attack, unspecified (principal); N17.9 Acute kidney failure, unspecified; Z68.41 Body mass index [BMI] 40.0-44.9, adult; N39.0 Urinary tract infection, site not specified; I25.10 Atherosclerotic heart disease of native coronary artery without angina pectoris; I10 Essential (primary) hypertension; E78.5 Hyperlipidemia, unspecified; E66.01 Morbid (severe) obesity due to excess calories; B95.1 Streptococcus, group B, as the cause of diseases classified elsewhere; Z95.5 Presence of coronary angioplasty implant and graft
CPT/HCPCS: 70450; 70496; 70498; 70551; 71045; 80048; 80053; 80061; 80307; 81003; 82550; 82553; 82962; 83036; 83735; 84100; 84443; 84484; 85025; 85610; 85651; 85730; 86592; 87086; 92610; 93005; 93306; 97116; 97161; 97166; G0378; J1644; J2060; J3370; J7040; Q9967

== ENCOUNTER 2019-05-10 10:29 | Emergency (ER) | payer OTHER ==
[~2019-05-10] VITALS: Ht 170.2 cm; Wt 97.0 kg
[2019-05-10 10:30] VITALS: Ht 170.2 cm; Wt 97.0 kg
[2019-05-10 12:00] VITALS: BP 128/77; PULSE 60; RESP 17
== END 2019-05-10 12:36 | disposition home or self-care (01) ==
LOC: E/R 10:29
DX: R55 Syncope and collapse (principal); I10 Essential (primary) hypertension; I25.10 Atherosclerotic heart disease of native coronary artery without angina pectoris; J44.9 Chronic obstructive pulmonary disease, unspecified; Z79.82 Long term (current) use of aspirin; Z98.61 Coronary angioplasty status
CPT/HCPCS: 36415; 70450; 71045; 80048; 84484; 85025; 93005